=== PATIENT | male | born 1935 | race Caucasian/White ===

== ENCOUNTER 2020-10-08 21:08 | Inpatient (IN) | payer OTHER ==
[~2020-10-08] VITALS: Ht 185.4 cm; Wt 95.9 kg
[2020-10-08] MEDS ORDERED: ONDANSETRON 2MG/ML, 2ML IVPush ONE (21:30)
[2020-10-08] MEDS: PLEASE ENTER ALLERGIES MC SCH (21:30)
[2020-10-08] MEDS ORDERED: SODIUM CHLORIDE 0.9% 1,000ML IVBOLUS ONE (21:30)
[2020-10-08] MEDS ORDERED: ONDANSETRON 2MG/ML, 2ML ONE (21:34)
[2020-10-08 21:38] LABS: BASOPHILS % (AUTO) 2 % (0-1); EOSINOPHILS % (AUTO) 4 % (1-7); LYMPHOCYTES % (AUTO) 26 % (22-44); MEAN CORPUSCULAR HEMOGLOBIN 39.1 pg (27.5-34.5); MEAN CORPUSCULAR HGB CONC 34.3 g/dL (33.2-36.2); MEAN PLATELET VOLUME 7.9 fL (7.4-10.4); MONOCYTES % (AUTO) 9 % (2-9); NEUTROPHILS % (AUTO) 60 % (42-75); PLATELET COUNT 209 x10^3/uL (130-400); RED BLOOD COUNT 2.79 x10^6/uL (4.38-5.82); RED CELL DISTRIBUTION WIDTH 18.9 % (9.4-14.8)
[2020-10-08 21:47] LABS: ALBUMIN 3.4 g/dL (3.4-5.0); ANION GAP 8 mmol/L (5-15); CALCIUM 8.8 mg/dL (8.5-10.1); CHLORIDE 105 mmol/L (98-107)
[2020-10-08 21:53] LABS: ALANINE AMINOTRANSFERASE 18 U/L (12-78); ALKALINE PHOSPHATASE 70 U/L (45-117); BILIRUBIN,TOTAL 0.9 mg/dL (0.2-1.0); CREATININE 0.78 mg/dL (0.7-1.3); TOTAL PROTEIN 6.3 g/dL (6.4-8.2); TROPONIN I < 0.015 ng/mL (0.000-0.045)
--- NOTE | 2020-10-09 01:37 | NUR ---
TP RN: PT HAS LONGTERM PLUS INSURANCE. SPOKE WITH MICHAELLE MCKEON AT [facility]. PT DENIED TRANSFER AT THIS TIME DUE TO NO BEDS.
[2020-10-09] MEDS ORDERED: TAMS-11 PO (02:35)
[2020-10-09] MEDS ORDERED: ESOM20CA57 PO (02:35)
[2020-10-09] MEDS ORDERED: FINA5TAB PO (02:35)
[2020-10-09] MEDS: PLEASE ENTER ALLERGIES MC SCH (04:28)
[2020-10-09 04:33] LABS: BASOPHILS % (AUTO) 1 % (0-1); EOSINOPHILS % (AUTO) 1 % (1-7); LYMPHOCYTES % (AUTO) 22 % (22-44); MEAN CORPUSCULAR HEMOGLOBIN 39.6 pg (27.5-34.5); MEAN CORPUSCULAR HGB CONC 34.6 g/dL (33.2-36.2); MEAN PLATELET VOLUME 8.5 fL (7.4-10.4); MONOCYTES % (AUTO) 7 % (2-9); NEUTROPHILS % (AUTO) 69 % (42-75); PLATELET COUNT 199 x10^3/uL (130-400); RED BLOOD COUNT 2.63 x10^6/uL (4.38-5.82); RED CELL DISTRIBUTION WIDTH 18.7 % (9.4-14.8)
[2020-10-09 04:38] LABS: ANION GAP 4 mmol/L (5-15); CALCIUM 8.5 mg/dL (8.5-10.1); CHLORIDE 106 mmol/L (98-107); CREATININE 0.75 mg/dL (0.7-1.3)
[2020-10-09 08:46] VITALS: BP_SYST 138; BP_SYST 139; BP_SYST 155; BP_DIAS 62; BP_DIAS 68
[2020-10-09] MEDS ORDERED: HEPARIN 5,000 UNITS/ML, 1ML SQ SCH (13:30)
[2020-10-09 13:32] VITALS: BP 136/63
[2020-10-09] MEDS: ACETAMINOPHEN 325 MG TABLET PO PRN ×2 (16:40→22:03)
[2020-10-09] MEDS: SODIUM CHLORIDE FLUSH 10ML SYR IVF SCH ×2 (16:40→21:00)
[2020-10-09] MEDS: HEPARIN 5,000 UNITS/ML, 1ML SQ SCH (16:40)
[2020-10-09 19:24] VITALS: BP 147/63
[2020-10-09 22:42] LABS: MICROSCOPIC NOT IND
[2020-10-10] MEDS: HEPARIN 5,000 UNITS/ML, 1ML SQ SCH ×2 (01:16→08:55)
[2020-10-10 02:49] VITALS: BP 150/79
[2020-10-10 06:08] LABS: % IRON SATURATION 55 % (20-55); IRON LEVEL 121 mcg/dL (65-175); TOTAL IRON BINDING CAPACITY 221 mcg/dL (250-450)
[2020-10-10 08:33] VITALS: BP 149/65
[2020-10-10] MEDS: SODIUM CHLORIDE FLUSH 10ML SYR IVF SCH (08:56)
== END 2020-10-10 12:54 | disposition home or self-care (01) | DRG 312 ==
LOC: ED 10-09 01:12 → EDIP 10-09 01:58 → 4WST 10-09 02:02
PROVIDERS: ADMIT Internal Medicine; ATTEND Internal Medicine
DX: I95.1 Orthostatic hypotension (principal); E87.1 Hypo-osmolality and hyponatremia; D64.9 Anemia, unspecified; H81.10 Benign paroxysmal vertigo, unspecified ear; I10 Essential (primary) hypertension; K21.9 Gastro-esophageal reflux disease without esophagitis; N40.0 Benign prostatic hyperplasia without lower urinary tract symptoms; Z87.891 Personal history of nicotine dependence
CPT/HCPCS: 36415; 70450; 71045; 80048; 80053; 81003; 83540; 83550; 83735; 83880; 84443; 84484; 85025; 93005; 93306; 93356; 96361; 96374; 99291; G0378; J1644; J2405; J7030